=== PATIENT | male | born 1985 | race Caucasian/White ===

== ENCOUNTER 2017-01-31 19:01 | Emergency (ER) | payer BC, OTHER ==
[2017-01-31 19:20] VITALS: BP 123/77; PULSE 81; RESP 16; TEMP 98.8; O2SAT 95
--- NOTE | 2017-01-31 19:37 | UCPHY ---
H & P Time Seen by Provider: 01/31/17 19:22 Patient Type: New HPI/ROS: This patient has green nasal discharge and sinus pressure concerning for sinusitis. He has had symptoms for 10 days and describes pressure in the frontal sinus mother maxillary sinus region. Symptoms worsened slightly when he bends 4. He has had low-grade subjective fevers associated with this. He does not feel that the symptoms are improving. His mild relief from over-the- counter analgesics without other exacerbating or relieving factors noted. ROS: No high fevers or chills. No significant fatigue. Neuro: No confusion or neck stiffness. HEENT: No sore throat or ear pain. Pulmonary: No cough. GI: No vomiting. 7 point ROS is otherwise negative Past Medical/Surgical History: Depression Hypercholesterolemia Smoking Status: Never smoked Physical Exam: Physical Exam Vital signs are normal. General: No acute distress HEENT: Nose: Yellow discharge to green discharge with swollen nasal turbinates. Minimal sinus tenderness to percussion. Ears: External canals and tympanic membranes are clear with no erythema or abnormal findings bilaterally. Oropharynx: No erythema or exudates. No dysphonia. No drooling or stridor. Eyes: Pupils equal and react to light. Extraocular motions are intact. Lungs: Clear to auscultation bilaterally with no rales, rhonchi or wheeze. No respiratory distress. Cardiac: Regular rate and rhythm with no murmur gallop or rub Skin: No rash or pallor. Neuro: Alert with no focal deficits noted. Initial differential diagnosis: Are on a sinusitis versus bacterial sinusitis Constitutional: Initial Vital Signs Temperature (C) 37.1 C 01/31/17 19:16 Heart Rate 81 01/31/17 19:16 Respiratory Rate 16 01/31/17 19:16 Blood Pressure 123/77 H 01/31/17 19:16 O2 Sat (%) 95 01/31/17 19:16 O2 Delivery Mode Room Air Allergies/Adverse Reactions: No Known Allergies Allergy (Unverified 01/31/17 19:15) Home Medications: Medication Instructions Recorded Amoxicillin Trihydrate 500 mg PO TID #30 cap 01/31/17 [Amoxicillin] Fluticasone Nasal [Flonase Nasal 2 sprays NASAL DAILY #1 mdi 01/31/17 Minerva (RX)] Paxil 01/31/17 Pravastatin Sodium 01/31/17 Departure - Departure Disposition: Home, Routine, Self-Care Clinical Impression: Acute sinusitis Qualifiers: Sinusitis location: frontal Recurrence: non-recurrent Qualified Code(s): J01.10 - Acute frontal sinusitis, unspecified Condition: Good Instructions: Rhinosinusitis (ED) Additional Instructions: Diagnosis: Acute rhinosinusitis Plan: Humidifier Guaifenesin Ibuprofen or Aleve Flonase steroid nasal spray If you're not improving over the next 2-3 days with treatment plan or have worsening symptoms, then start Amoxil antibiotic in addition. Return for any significant worsening despite the treatment plan. Referrals: NONE *PRIMARY CARE P,. [Primary Care Provider] - As per Instructions Prescriptions: Amoxicillin Trihydrate [Amoxicillin] 500 mg PO TID #30 cap Fluticasone Nasal [Flonase Nasal Minerva (RX)] 2 sprays NASAL DAILY #1 mdi - PQRS PQRS Measurement: NA
== END 2017-01-31 19:59 | disposition home or self-care (01) ==
LOC: CED 19:01
DX: J01.10 Acute frontal sinusitis, unspecified (principal); F32.9 Major depressive disorder, single episode, unspecified; E78.00 Pure hypercholesterolemia, unspecified
CPT/HCPCS: G0463-PO